=== PATIENT | male | born 1970 | race Caucasian/White ===

== ENCOUNTER 2017-12-03 20:37 | Emergency (ER) | payer BC ==
[~2017-12-03] VITALS: Ht 180.3 cm; Wt 93.8 kg
[2017-12-03 20:43] VITALS: BP 122/84
[2017-12-03] MEDS ORDERED: LIDOcaine 1.5% w/epinephrine 1:200,000 5ml ampul IJ ONE (21:45)
[2017-12-03] MEDS ORDERED: TETanus/Pertussis (Acell)/Diphther VAC/PF (Tdap-Adult) 0.5ml syringe IM ONE (21:45)
== END 2017-12-03 23:14 | disposition home or self-care (01) ==
LOC: ER 20:38
DX: S60.450A Superficial foreign body of right index finger, initial encounter (principal); W22.8XXA Striking against or struck by other objects, initial encounter; Y93.89 Activity, other specified; Y92.89 Other specified places as the place of occurrence of the external cause; Y99.8 Other external cause status
CPT/HCPCS: 90471; 90715; 99283; A6222; A6255; A6449; J3490